=== PATIENT | male | born 1975 | race Caucasian/White ===

== ENCOUNTER 2020-02-17 11:59 | Observation (INO) ==
[2020-02-17 13:08] LABS: Basophils # (auto) 0.01 K/uL (0-0.2); Basophils % (auto) 0.1 %; Eosinophils # (auto) 0.12 K/uL (0-0.5); Eosinophils % (auto) 1.5 %; Hematocrit (blood only) 43.4 % (42-52); Hemoglobin 14.8 g/dL (14.0-18.0); Immature Granulocytes # (auto) 0.04 K/uL (0.00-0.02); Immature Granulocytes % (auto) 0.5 %; Lymphocytes # (auto) 1.11 K/uL (1.2-3.4); Lymphocytes % (auto) 14.1 %; Mean Corpuscular Hemoglobin 31.2 pg (25-34); Mean Corpuscular Hgb Conc 34.1 g/dL (32-36); Mean Corpuscular Volume 91.4 fL (80-100); Mean Platelet Volume 9.6 fL (7.4-10.4); Monocytes # (auto) 0.71 K/uL (0.11-0.59); Neutrophils # (auto) 5.86 K/uL (1.4-6.5); Neutrophils % (auto) 74.8 %; Platelet Count 297 K/uL (130-400); RDW Standard Deviation 43.3 fL (36.4-46.3); Red Blood Count 4.75 M/uL (4.7-6.1); White Blood Count 7.85 K/uL (4.8-10.8)
--- NOTE | 2020-02-17 13:11 | Emergency Department Note ---
Impression & Plan Foreign body ingestion ED Provider Note NAME: JENNIFFER [id number] ISABEL AGE: 44 SEX: M ARRIVES VIA: Walk-In INFORMANT: [Patient] ED PROVIDER(S): Xavier Fontanez MD CHIEF COMPLAINT: Ingested foreign body PLAN: Disposition: Taken to the OR Condition: [Good] MEDICAL DECISION MAKING: Patient presented emergency department after ingesting 3 AAA batteries. He has done this several times before. Record review indicates he was treated conservatively as the batteries were past the pylorus on his last visit. He did pass the batteries with a bowel prep. This ingestion occurred about 2 hours ago. IV was established. Blood work was obtained. KUB imaging confirmed. Consultation was made with gastroenterology. Dr. Watt recommended conservative management as these should pass on their own. He recommended a GoLYTELY bowel prep and admission to the hospital service. A consultation was p laced with the [facility]. The patient was evaluated in the ER and admitted for further management. Triage Nursing notes reviewed and agree them. [Additional history obtained from] care home guards [Prior medical records reviewed] patient was discharged 7 days ago for similar ingestion. Vital Signs: reviewed and remarkable for [no significant abnormalities] Differential diagnosis: Foreign body ingestion, esophageal tear, esophageal ulcer, gastric perforation, obstruction, mesenteric ischemia, mood, pancreatitis, biliary pathology, malingering, as well as other pathologies. ER treatment provided: No medication given. Diagnostics interpreted by me: Laboratory studies: [See below] an unremarkable CBC and chemistry panel. Imaging studies: X-ray imaging, KUB, revealed several radiopaque foreign bodies in the area of the stomach. These look consistent with AAA batteries. Consultation(s): Gastroenterology Internal medicine HPI: The patient is a 44 year old male who presents to the Emergency Room with complaints of foreign body ingestion. This started 2 hours and is at least the third time this has occurred. The patient also notes the following associated symptoms, epigastric abdominal discomfort. The patient has been given no medication for relieving factors. Current pain is rated as 4/10. Patient states he damaged 3 AAA batteries at the present and ingested these. He was discharged 7 days ago for similar ingestion that required conservative management and bowel prep. Pt denies LOC, headache, fevers, chills, diaphoresis, visual changes, neck pain, chest pain, breathing difficulties, nausea, vomiting, back pain, melena, hematochezia, urinary symptoms, numbness, weakness, lymphadenopathy, rash, or other complaints. ROS: See above HPI for pertinent positives & negatives. A total of [10] systems reviewed and were otherwise negative. PAST MEDICAL HISTORY:[See Below] foreign body ingestion, hepatitis C PAST SURGICAL HISTORY:[See Below] FAMILY HISTORY:[See Below] SOCIAL HISTORY:[See Below] incarcerated HOME MEDICATIONS:[See Below] ALLERGIES:[See Below] VITALS:[See Below] PHYSICAL EXAMINATION: GENERAL: Awake, alert, well-appearing, in no distress HENT: Normocephalic, atraumatic. Oropharynx unremarkable. EYES: Normal conjunctiva. Sclera non-icteric. NECK: Inspection normal. Non-tender. Supple. No nuchal rigidity. FROM. No masses. RESPIRATORY: Clear to auscultation. No wheezes. No rales. Normal respiratory effort. CARDIAC: Normal rate. Normal rhythm. No murmurs. No rubs. Extremities warm and well perfused. Pulses equal. No JVD. GI: Soft, non-distended. Epigastric tenderness to palpation. No rebound or guarding. No masses. RECTAL: Deferred. MUSCULOSKELETAL: Atraumatic. Chest examination reveals no tenderness. The back is symmetrical on inspection without obvious abnormality. There is no CVA tenderness to palpation. No joint edema. LOWER EXTREMITIES: Calves are equal size bilaterally and non-tender. No edema. No discoloration. NEURO: Normal sensorium. No sensory or motor deficits noted. SKIN: No rash or jaundice noted. ED COURSE: [Critical Care:] [None] Xavier Fontanez MD Past Med/Surg History Medical History Antisocial personality disorder Anxiety Asthma Conduct disorder Hepatitis C Hypercholesterolemia Family History Other Family history non-contributory Social History Preferred Language: Belarusian Communication Ability: Effective Office Messenger Required: No Beliefs That Will Affect Care: None Current Living Situation: Other Current Living Situation Comment: Prisoner, [facility] Other Information That Helps Us Care for You: No Feels Safe at Home: Yes Safety Concerns: Feels Safe At This Time Smoking Status: Former smoker Hx Alcohol Use: No Hx Substance Use: No Allergies Allergies Allergy/AdvReac Type Severity Reaction Status Date / Time No Known Allergies Allergy Unverified 02/17/20 12:28 Home Meds Home Medications Medication Instructions Recorded Confirmed acetaminophen [Tylenol Extra 500 mg PO TID PRN 01/22/20 02/17/20 Strength] diphenhydramine HCl [Benadryl] 50 mg PO BID 01/22/20 02/17/20 doxepin 25 mg PO BID 01/22/20 02/17/20 gemfibrozil 600 mg PO BID 01/22/20 02/17/20 levalbuterol tartrate [Xopenex HFA] 2 inh INHALATION TID PRN 01/22/20 02/17/20 alum-mag hydroxide-simeth [Maalox 30 ml PO TID PRN 02/02/20 02/17/20 Advanced] diclofenac sodium 50 mg PO TID PRN 02/02/20 02/17/20 triamcinolone acetonide 1 applic TOPICAL BID 02/02/20 02/17/20 olanzapine 10 mg PO BID 02/17/20 02/17/20 Previous Rx's Medication Instructions Recorded pantoprazole 40 mg PO DAILY 30 Days #30 tab 01/25/20 polyethylene glycol 3350 [Miralax] 17 g PO BID #0 ea 02/10/20 sennosides-docusate sodium 2 tab PO DAILY #0 tab 02/10/20 [Senokot-S] Results & Data (ED) Vital Signs Vital Signs - 24 hr 02/17/20 12:05 02/17/20 13:32 Temperature 36.9 C Temperature Source Oral Pulse Rate 75 Pulse Rate [Right Finger] 74 Respiratory Rate 18 20 Respiratory Effort / Characteristics Non-Labored Respiratory Depth Normal Blood Pressure 134/61 Blood Pressure [Right Arm] 108/58 L Blood Pressure Mean 85 Blood Pressure Mean [Right Arm] 74 Pulse Oximetry 98 98 Oxygen Delivery Method Room Air Room Air Sepsis Recent Fever Within 48 Hours No Sepsis New/Unexplained Change in Mental Status No Sepsis Action Taken by Nursing No Action Required Laboratory Data Result diagrams: 02/17/20 12:55 02/17/20 12:55 Lab Results 02/17/20 02/17/20 02/17/20 Range/Units 12:55 12:55 12:55 WBC 7.85 (4.8-10.8) K/uL RBC 4.75 (4.7-6.1) M/uL Hgb 14.8 (14.0-18.0) g/dL Hct 43.4 (42-52) % MCV 91.4 (80-100) fL MCH 31.2 (25-34) pg MCHC 34.1 (32-36) g/dL RDW Std Deviation 43.3 (36.4-46.3) fL RDW Coeff of Saad 13.0 (11.5-14.5) % Plt Count 297 (130-400) K/uL MPV 9.6 (7.4-10.4) fL Immature Gran % (Auto) 0.5 % Neut % (Auto) 74.8 % Lymph % (Auto) 14.1 % [place] % (Auto) 9.0 % Eos % (Auto) 1.5 % Baso % (Auto) 0.1 % Immature Gran # (Auto) 0.04 H (0.00-0.02) K/uL Neut # (Auto) 5.86 (1.4-6.5) K/uL Lymph # (Auto) 1.11 L (1.2-3.4) K/uL [place] # (Auto) 0.71 H (0.11-0.59) K/uL Eos # (Auto) 0.12 (0-0.5) K/uL Baso # (Auto) 0.01 (0-0.2) K/uL PT 10.7 (9.0-12.0) Seconds INR 1.0 (0.9-1.1) APTT 26.5 (21.0-31.0) Seconds PTT Ratio 0.9 Sodium 141 (136-145) mmol/L Potassium 4.1 (3.5-5.1) mmol/L Chloride 108 H (98-107) mmol/L Carbon Dioxide 25 (21-32) mmol/L Anion Gap 8.0 (3-11) BUN 10 (7-18) mg/dl Creatinine 0.95 (0.6-1.4) mg/dl Est Cr Clr Drug Dosing 100.2 ml/min Est GFR ( Amer) 112.4 Est GFR (Non-Af Amer) 97.0 BUN/Creatinine Ratio 10.1 (10-20) Glucose 97 (70-99) mg/dl Calcium 9.4 (8.5-10.1) mg/dl Total Bilirubin 0.4 (0.2-1) mg/dl AST 26 (15-37) U/L ALT 57 (12-78) U/L Alkaline Phosphatase 47 (45-117) U/L Total Protein 8.5 H (6.4-8.2) gm/dl Albumin 4.3 (3.4-5.0) gm/dl Globulin 4.2 H (2.5-4.0) gm/dl Albumin/Globulin Ratio 1.0 (0.9-2) Lipase 101 (73-393) U/L Administered Medications Discontinued Medications Sodium Chloride (Nss) 500 mls @ 125 mls/hr IV .Q4H ROSAMARIA Stop: 03/18/20 16:14 Last Admin: 02/17/20 16:49 Dose: Not Given Documented by: [id number] Discharge Plan Visit Data *Final* Discharge Date/Time: 02/17/20 15:30 Chief Complaint: Foreign Body Stated Complaint: SWALLOWED BATTERIES ED Provider: Xavier Fontanez Discharge Problem: Foreign body ingestion Patient Disposition: Admitted As Inpatient Discharge Instructions Interventions: ED Discharge Assessment Last Done: 02/17/20 15:30
[2020-02-17 13:25] LABS: Albumin Level 4.3 gm/dl (3.4-5.0); BUN Creatinine Ratio 10.1 (10-20); Calcium 9.4 mg/dl (8.5-10.1); Creatinine Clr Calc Pharmacy 100.2 ml/min; Est GFR (African American) 112.4; Potassium 4.1 mmol/L (3.5-5.1)
[2020-02-17 13:28] LABS: Bilirubin,Total 0.4 mg/dl (0.2-1); Globulin 4.2 gm/dl (2.5-4.0); Total Protein 8.5 gm/dl (6.4-8.2)
[2020-02-17 13:30] LABS: Partial Thromboplastin Ratio 0.9; Partial Thromboplastin Time 26.5 Seconds (21.0-31.0); Prothrombin Time 10.7 Seconds (9.0-12.0)
--- NOTE | 2020-02-17 13:50 | XRay Report ---
KUB CLINICAL HISTORY: The patient swallowed batteries. FINDINGS: An AP, portable, supine abdominal radiograph is compared to study dated 02/09/2020. There ar e 2 radiodense foreign bodies projecting over the mid stomach consistent with the reported history of ingested batteries. No additional radiodense foreign body is seen. There is no bowel obstruction. Mo derate colonic fecal retention is noted. There are no abnormal abdominal calcifications. The bony str uctures appear intact. IMPRESSION: 2 radiodense foreign bodies project over the stomach and are consistent with the reported history of ingested batteries. Electronically signed by: Chriss Mojica M.D. 02/17/2020 1:49 PM
--- NOTE | 2020-02-17 14:24 | History & Physical Report ---
Date of Service February 17, 2020 Assessment & Plan (1) Foreign body ingestion: Foreign body ingestion KUB:2 radiodense foreign bodies project over the stomach and are consistent with the reported history of ingested batteries. Continue bowel regimen GoLYTELY if patient agrees Repeat KUB in a.m. Psychiatry evaluation for recurrent foreign body ingestion Pain control IV fluids Clear liquid diet N.p.o. after midnight for possible scope if needed Mood disorder H/O schizophrenia ? Malingering Continue doxepin, olanzapine Psychiatric consulted Asthma No signs of exacerbation Albuterol as needed Dyslipidemia Continue gemfibrozil H/O Hep C H/O Prior IV drug use, alcohol and tobacco use DVT Px: SCDs Disposition JESUS Ramirez History of Present Illness Primary Care Provider: JESUS Ramirez Patient is a 44-year-old male with history of mood disorder, asthma, hepatitis C, dyslipidemia, prior IV drug use, alcohol and tobacco use and other medical problems presents from [facility] with epigastric pain after ingestion of 3 AAA batteries 3 hours prior to admission. Patient states having sharp epigastric pain, 7/10 intensity nonradiating since ingestion of foreign body. He had multiple admissions in the past with similar foreign body ingestion. He states undergoing through aggression which prompts him to swallow batteries and believes that his mood disorder is not well controlled. ER physician consulted GI who recommended GoLYTELY but currently patient refuses to consume it. Denies any history of chest pain, SOB, palpitations, dizziness, pedal edema, diaphoresis, cough, hemoptysis, fever, chills, headache, nausea, vomiting, blood in stools, diarrhea, change in appetite, dysuria, hematuria. Allergies Allergy/AdvReac Type Severity Reaction Status Date / Time No Known Allergies Allergy Unverified 02/17/20 12:28 Home Medications Home Medications Medication Instructions Recorded Confirmed Type acetaminophen [Tylenol Extra 500 mg PO TID PRN 01/22/20 02/17/20 History Strength] diphenhydramine HCl [Benadryl] 50 mg PO BID 01/22/20 02/17/20 History doxepin 25 mg PO BID 01/22/20 02/17/20 History gemfibrozil 600 mg PO BID 01/22/20 02/17/20 History levalbuterol tartrate [Xopenex HFA] 2 inh INHALATION TID PRN 01/22/20 02/17/20 History pantoprazole 40 mg PO DAILY 30 Days #30 tab 01/25/20 02/17/20 Rx alum-mag hydroxide-simeth [Maalox 30 ml PO TID PRN 02/02/20 02/17/20 History Advanced] diclofenac sodium 50 mg PO TID PRN 02/02/20 02/17/20 History triamcinolone acetonide 1 applic TOPICAL BID 02/02/20 02/17/20 History polyethylene glycol 3350 [Miralax] 17 g PO BID #0 ea 02/10/20 02/17/20 Rx sennosides-docusate sodium 2 tab PO DAILY #0 tab 02/10/20 02/17/20 Rx [Senokot-S] olanzapine 10 mg PO BID 02/17/20 02/17/20 History Past Med/Surg History Medical History Antisocial personality disorder Anxiety Asthma Conduct disorder Hepatitis C Hypercholesterolemia Family History Other Family history non-contributory Social History Preferred Language: Malay Communication Ability: Effective 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 Beliefs That Will Affect Care: None Current Living Situation: Other Current Living Situation Comment: Prisoner, [facility] Other Information That Helps Us Care for You: No Feels Safe at Home: Yes Safety Concerns: Feels Safe At This Time Smoking Status: Former smoker Hx Alcohol Use: No Hx Substance Use: No Review of Systems Review of Systems: All systems reviewed & are unremarkable except as noted in HPI & below Physical Exam Physical Exam: Physical Exam: Vitals signs as noted above General Appearance:Moderately built and nourished, no apparent distress Head: normocephalic, Atraumatic Eyes: normal inspection, EOMI Neck: supple, Trachea midline Respiratory/Chest: Normal breath sounds, CTA, No accessory muscle use Cardiovascular: S1, S2, No murmur Abdomen/GI:Soft, Epigastric, RLL tender, Bowel sounds present Extremities/Musculoskelatal:normal inspection, no edema Neurologic/Psych:AAOX3, grossly no focal neurological deficits Skin: normal color, warm Results & Data Results & Data ([facility]) Vital Signs (Past 12 Hours) Vital Signs Temp Pulse Pulse Resp BP BP Pulse Ox 02/17/20 13:32 74 20 108/58 L 98 02/17/20 12:05 36.9 C 75 18 134/61 98 Laboratory Results Short CBC 02/17/20 Range/Units 12:55 WBC 7.85 (4.8-10.8) K/uL Hgb 14.8 (14.0-18.0) g/dL Hct 43.4 (42-52) % Plt Count 297 (130-400) K/uL BMP 02/17/20 12:55 Sodium 141 Potassium 4.1 Chloride 108 H Carbon Dioxide 25 BUN 10 Creatinine 0.95 Glucose 97 Calcium 9.4 Liver Function 02/17/20 Range/Units 12:55 Total Bilirubin 0.4 (0.2-1) mg/dl AST 26 (15-37) U/L ALT 57 (12-78) U/L Alkaline Phosphatase 47 (45-117) U/L Albumin 4.3 (3.4-5.0) gm/dl Urine 02/17/20 Range/Units 19:38 Urine Color Yellow Urine Appearance Clear (Clear) Urine pH 8.0 H (4.5-7.5) Ur Specific [place] 1.008 (1.000-1.030) Urine Protein Negative (Negative) Urine Glucose (UA) Negative (Negative) Diagnostic Findings KUB: 2 radiodense foreign bodies project over the stomach and are consistent with the reported history of ingested batteries. Code Status & VTE Plan VTE Prophylaxis Plan VTE Prophylaxis will be ordered: Yes
[2020-02-17] MEDS ORDERED: ONDANSETRON INJ 2 MG/ML 2 ML VIAL IV PRN (15:40)
[2020-02-17] MEDS ORDERED: LEVALBUTEROL TARTRATE 15 GM HFA.AER.AD INH PRN (15:40)
[2020-02-17] MEDS ORDERED: SODIUM CHLORIDE 0.9% 500 ML IV SCH (16:15)
--- NOTE | 2020-02-17 16:17 | Gastrointestinal Consultation ---
Date of Consultation February 17, 2020 Assessment & Plan (1) Foreign body ingestion: three triple A batteries. has done this multiple times before. he does this when he gets angry/frusturated recs: --psychiatry evaluation --serial KUBs daily --golytely 4L now to help the batteries pass --supportive care rest as per primary team Thank you for allowing me to participate in the care of this patient History of Present Illness Attending Physician: Jean-Claude Tejada MD 44 yo male known to GI service who presents today after ingesting batteries. He notes that he has ingested three triple A [facility] today in [facility]. He says he did this because he was angry. He has done this 3 times before in the past. KUB shows ingested batteries. has some abdominal pains currently, no n/v, change in bowel habits. last time the batteries passed with laxative therapy. labs reviewed Allergies Allergy/AdvReac Type Severity Reaction Status Date / Time No Known Allergies Allergy Unverified 02/17/20 12:28 Home Medications Home Medications Medication Instructions Recorded Confirmed Type acetaminophen [Tylenol Extra 500 mg PO TID PRN 01/22/20 02/17/20 History Strength] diphenhydramine HCl [Benadryl] 50 mg PO BID 01/22/20 02/17/20 History doxepin 25 mg PO BID 01/22/20 02/17/20 History gemfibrozil 600 mg PO BID 01/22/20 02/17/20 History levalbuterol tartrate [Xopenex HFA] 2 inh INHALATION TID PRN 01/22/20 02/17/20 History pantoprazole 40 mg PO DAILY 30 Days #30 tab 01/25/20 02/17/20 Rx alum-mag hydroxide-simeth [Maalox 30 ml PO TID PRN 02/02/20 02/17/20 History Advanced] diclofenac sodium 50 mg PO TID PRN 02/02/20 02/17/20 History triamcinolone acetonide 1 applic TOPICAL BID 02/02/20 02/17/20 History polyethylene glycol 3350 [Miralax] 17 g PO BID #0 ea 02/10/20 02/17/20 Rx sennosides-docusate sodium 2 tab PO DAILY #0 tab 02/10/20 02/17/20 Rx [Senokot-S] olanzapine 10 mg PO BID 02/17/20 02/17/20 History Patient History Medical History Antisocial personality disorder Anxiety Asthma Conduct disorder Hepatitis C Hypercholesterolemia Family History Other Family history non-contributory Social History Preferred Language: Irish Communication Ability: Effective Patrol Guard Required: No Beliefs That Will Affect Care: None Current Living Situation: Other Current Living Situation Comment: Prisoner, [facility] Other Information That Helps Us Care for You: No Feels Safe at Home: Yes Safety Concerns: Feels Safe At This Time Smoking Status: Former smoker Hx Alcohol Use: No Hx Substance Use: No Review of Systems Constitutional: no fever, no chills and no weight loss Eyes: as per Subjective / HPI Ear, Nose, Mouth, Throat: as per Subjective / HPI Respiratory: no dyspnea and no dyspnea on exertion Cardiovascular: no chest pain and no palpitations Gastrointestinal: as per Subjective / HPI Musculoskeletal: no joint pain and no swelling Integumentary: no rash and no lesions Neurologic: no numbness and no paresthesia Psychiatric: no depression and no anxiety Endocrine: no fatigue Hematologic / Lymphatic: no easy bleeding and no easy bruising Physical Exam Constitutional: WD/WN, vitals as above Eyes: EOM intact bilaterally Neck: normal visual inspection Respiratory: normal respiratory effort, lungs clear to auscultation Cardiovascular: RRR, no murmur, no edema Gastrointestinal (Abdomen): Inspection/Auscultation: abdomen normal to inspection; abdomen not distended Percussion/Palpation: abdomen soft; abdomen nontender and no hepatosplenomegaly Musculoskeletal: Extremities: no cyanosis Gait: normal gait Skin: no rashes, warm and dry Neurologic: moves all extremities Psychiatric: A+Ox3, euthymic affect Results & Data ([facility]) Vital Signs (Past 12 Hours) Vital Signs Temp Pulse Pulse Resp BP BP Pulse Ox 02/17/20 15:40 36.5 C 74 16 108/60 98 02/17/20 15:30 78 20 121/63 100 02/17/20 15:20 75 20 121/63 100 02/17/20 13:32 74 20 108/58 L 98 02/17/20 12:05 36.9 C 75 18 134/61 98 PG Care Time/CCT Total # of Minutes Spent Total Time Spent with Patient: Total time spent is greater than 50% in coordination of care (as documented) at patient's floor/unit and/or counseling patient: Coding Level of Care Code 35161 Inpt Consult Level 4 Diagnoses Foreign body ingestion T18.9XXA
[2020-02-17] MEDS: POLYETHYLENE (MIRALAX) 17 GM PACK PO SCH (19:08)
[2020-02-17] MEDS: SODIUM CHLORIDE 0.9% 1000ML 1,000 ML IV SCH (19:08)
[2020-02-17] MEDS: LAVAGE SOLUTION 4000ML PO SCH (19:35)
[2020-02-17 19:48] LABS: Appearance Urine Clear (Clear); Bilirubin Urine Negative (Negative); Blood Urine Negative (Negative); Color Urine Yellow; Glucose Urine UA Negative (Negative); Ketones Urine Negative (Negative); Leukocyte Esterase Urine Negative (Negative); Nitrite Urine Negative (Negative); Protein Urine Negative (Negative); Specific Gravity Urine 1.008 (1.000-1.030); Urobilinogen Urine Negative (Negative)
[2020-02-17] MEDS ORDERED: ALBUTEROL 0.083% NEBU SOLN 3 ML VIAL NEB PRN (20:01)
[2020-02-17] MEDS: DOCUSATE SODIUM 100 MG CAP PO SCH (22:12)
[2020-02-17] MEDS: OLANZapine 10 MG TAB PO SCH (22:12)
[2020-02-17] MEDS: DOXEPIN HCL 25 MG CAPSULE PO SCH (22:13)
[2020-02-17] MEDS: gemfibroziL 600 MG TAB PO SCH (22:13)
[2020-02-18] MEDS: ACETAMINOPHEN 325 MG TAB PO PRN ×3 (00:02→16:48)
[2020-02-18] MEDS: SODIUM CHLORIDE 0.9% 1000ML 1,000 ML IV SCH ×3 (02:36→16:45)
[2020-02-18 06:53] LABS: Hematocrit (blood only) 39.5 % (42-52); Hemoglobin 13.5 g/dL (14.0-18.0); Mean Corpuscular Hgb Conc 34.2 g/dL (32-36); Mean Corpuscular Volume 90.8 fL (80-100); Mean Platelet Volume 9.6 fL (7.4-10.4); Platelet Count 231 K/uL (130-400); RDW Coefficient of Variation 12.9 % (11.5-14.5); RDW Standard Deviation 43.3 fL (36.4-46.3); Red Blood Count 4.35 M/uL (4.7-6.1); White Blood Count 5.56 K/uL (4.8-10.8)
[2020-02-18 07:30] LABS: BUN Creatinine Ratio 7.9 (10-20); Calcium 8.9 mg/dl (8.5-10.1); Creatinine Clr Calc Pharmacy 90.9 ml/min; Est GFR (African American) 109.6; Est GFR (Non-African American) 94.6; Potassium 3.8 mmol/L (3.5-5.1)
--- NOTE | 2020-02-18 07:50 | XRay Report ---
KUB HISTORY: ingestion of foreign body COMPARISON: KUB 02/17/2020. FINDINGS: Radiopaque foreign bodies are again noted within the right side of the abdomen likely resid e within the ascending colon. No renal calculi. No ureteral calculi. No pneumoperitoneum or pneumato sis. IMPRESSION: Radiopaque foreign bodies are seen within the right side of the abdomen and likely reside within the ascending colon. ACT 112: Negative or not required by law. Electronically signed by: Rahul Rao M.D. 02/18/2020 7:49 AM
[2020-02-18] MEDS: gemfibroziL 600 MG TAB PO SCH ×3 (09:33→20:33)
[2020-02-18] MEDS: DOCUSATE SODIUM 100 MG CAP PO SCH ×2 (09:33→20:32)
[2020-02-18] MEDS: POLYETHYLENE (MIRALAX) 17 GM PACK PO SCH (09:33)
[2020-02-18] MEDS: PANTOprazole 40 MG TAB PO SCH (09:34)
[2020-02-18] MEDS: DOXEPIN HCL 25 MG CAPSULE PO SCH (09:34)
[2020-02-18] MEDS: OLANZapine 10 MG TAB PO SCH ×2 (09:35→20:33)
[2020-02-18] MEDS: LAVAGE SOLUTION 4000ML PO SCH (10:17)
--- NOTE | 2020-02-18 10:33 | Gastroenterology Progress Note ---
Date of Service February 18, 2020 Assessment & Plan (1) Foreign body ingestion: Pt is a 44 y/o inmate admitted after swallowing 3 AAA batteries. Batteries are now in ascending colon area. No signs of obstruction or peritonitis. This is his 3rd admission in 1 month for foreign body ingestion. - CL diet, advance as tolerated - Golytely to stimulate BM ordered - Series of KUB to ensure batteries are passed; or if DC'd back to residential, make sure stools are sifted through and KUB obtained there to ensure no residual foreign body left - GI to sign off Admission and Anticipated Discharge Date Admission Date: February 17, 2020 Supervising Physician Co-Signing Physician Notes Attending attestation I have seen, examined this patient, and agree with the findings and above by our mid-level provider JUSTINA Webb, with the following additions: - batteries are located in the ascending colon - continue with bowel prep, kub daily Subjective Pt w mild nausea but said hungry and wants to eat. Mild R sided abd discomfort. Review of Systems Review of Systems: All systems reviewed & are unremarkable except as noted in HPI & below Physical Exam Constitutional: WD/WN, vitals as above well groomed, cooperative and comfortable Eyes: PERRL, conjunctivae normal, anicteric sclerae ENMT: external ear and nose normal, oropharynx normal Respiratory: normal respiratory effort, lungs clear to auscultation Cardiovascular: RRR, no murmur, no edema Gastrointestinal (Abdomen): normal bowel sounds, soft, nontender, no hepatosplenomegaly Skin: no rashes, warm and dry no jaundice Psychiatric: A+Ox3, euthymic affect Lymphatic: no lymphedema Results & Data ([facility]) Vital Signs (Past 12 Hours) Vital Signs Temp Pulse Resp BP Pulse Ox 02/18/20 07:58 36.3 C L 62 16 115/68 97 02/17/20 23:45 36.4 C L 74 16 115/70 98
--- NOTE | 2020-02-18 12:18 | Hospitalist Progress Note ---
Date of Service February 18, 2020 Assessment & Plan (1) Foreign body ingestion: Foreign body ingestion Present on admission from longterm after swallowing 3 triple (AAA) batteries Repeat KUB today showed Radiopaque foreign bodies are seen within the right side of the abdomen and likely reside within the ascending colon Agreed to take the Golytely currently GI on board Recommended to continue CL diet, advance as tolerated Series of KUB to ensure batteries are passed If discharge back to the longterm, will recommend to monitor in the infirmary and continue to give stools softener/laxative to help passing the batteries with repeat KUB If pt develops any sign of peritonitis or severe abdominal pain, he can transfer back to the hospital Psychiatry evaluation for recurrent foreign body ingestion- pending Pain control Mood disorder H/O schizophrenia Malingering Continue doxepin, olanzapine Psychiatric consulted Asthma No signs of exacerbation Albuterol as needed Dyslipidemia Continue gemfibrozil H/O Hep C H/O Prior IV drug use, alcohol and tobacco use DVT Px: SCDs CODE STATUS FULL CODE Disposition [facility] Admission and Anticipated Discharge Date Admission Date: February 17, 2020 Subjective Pt was seen and examined Lying in bed with no distress with 2 guards at bedside Pt refused the Golytely last night, but agreed to take it this morning He has been drinking the Golytely He said that he does have a mild abdominal discomfort Pt said that 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, then caused him to swallow the battery Denies any chest pain, palpitation, dizziness and SOB Physical Exam Physical Exam: General- No acute distress Head- atraumatic Eyes- PERRL, EOMI, ENT- oropharynx clear Neck- supple, no JVD Lungs- clear to auscultation Heart- regular rhythm; no murmur Abdomen- normal bowel sounds, soft, +mild abdominal tendenessr Extremities- no calf tenderness Neuro- alert, oriented x 3; PERRL, EOMI; no facial palsy; no dysarthria Skin- warm & dry Results & Data Results & Data ([facility]) Vital Signs (Past 12 Hours) Vital Signs Temp Pulse Resp BP Pulse Ox 02/18/20 07:58 36.3 C L 62 16 115/68 97
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
[2020-02-18] MEDS ORDERED: DOXEPIN HCL 50 MG CAPSULE PO SCH (21:00)
[2020-02-18] MEDS ORDERED: DOXEPIN HCL 50 MG CAPSULE PO ONE (21:48)
[2020-02-19] MEDS: SODIUM CHLORIDE 0.9% 1000ML 1,000 ML IV SCH ×2 (00:39→08:36)
[2020-02-19] MEDS: ACETAMINOPHEN 325 MG TAB PO PRN (00:42)
[2020-02-19] MEDS: DOCUSATE SODIUM 100 MG CAP PO SCH (08:37)
[2020-02-19] MEDS: gemfibroziL 600 MG TAB PO SCH (08:37)
[2020-02-19] MEDS: POLYETHYLENE (MIRALAX) 17 GM PACK PO SCH (08:37)
[2020-02-19] MEDS: OLANZapine 10 MG TAB PO SCH (08:37)
[2020-02-19] MEDS: PANTOprazole 40 MG TAB PO SCH (08:37)
--- NOTE | 2020-02-19 11:00 | XRay Report ---
KUB HISTORY: Follow-up foreign bodies within abdomen. COMPARISON: KUB 02/18/2020. FINDINGS: Radiopaque foreign bodies are now scattered within the mid abdomen, left lower quadrant, an d right mid abdomen. No renal calculi. No ureteral calculi. No pneumoperitoneum or pneumatosis. No e vidence for bowel obstruction. IMPRESSION: Radiopaque foreign bodies now scattered throughout the abdomen and appear to reside within the ascend ing colon, transverse colon, and sigmoid colon. ACT 112: Negative or not required by law. Electronically signed by: Rahul Rao M.D. 02/19/2020 10:58 AM
--- NOTE | 2020-02-19 15:45 | Hospitalist Progress Note ---
Date of Service February 19, 2020 Assessment & Plan (1) Foreign body ingestion: Foreign body ingestion Present on admission from care home after swallowing 3 triple (AAA) batteries Repeat KUB today showed radiopaque foreign bodies now scattered throughout the abdomen and appear to reside within the ascending colon, transverse colon, and sigmoid colon. Had Golytely yesterday GI on board Recommended to continue CL diet, advance as tolerated Continue Miralax and Colace until batteries pass Series of KUB to ensure batteries are passed If discharge back to the care home, will recommend to monitor in the infirmary and continue to give stools softener/laxative to help passing the batteries with repeat KUB If pt develops any sign of peritonitis or severe abdominal pain, he can transfer back to the hospital for eval Psychiatry evaluation for recurrent foreign body ingestion Continue Tylenol for pain control Ok from GI standpoint to discharge back to the care home with the above plan Case discussed with the provider at [facility] Dr. Castro that agreed with the plan and ok for pt to return to [facility] Mood disorder H/O schizophrenia Malingering Psych on board an recommended to increase doxepin to 75mg HS, then advance to 100 mg in a week. Avoid morning dose of Doxepin as it could make him too sleepy. Please watch for dryness of the mouth and constipation over time while on Doxepin Continue olanzapine Follow up with psych at the care home Asthma No signs of exacerbation Albuterol as needed Dyslipidemia Continue gemfibrozil H/O Hep C H/O Prior IV drug use, alcohol and tobacco use DVT Px: SCDs CODE STATUS FULL CODE Disposition Discharge [facility] today Case discussed with Dr. Castro at [facility] Admission and Anticipated Discharge Date Admission Date: February 17, 2020 Subjective Pt was seen and examined Lying in bed with no distress with 2 guards at bedside Pt said that he has been having watery bowel movement from the laxative and stool softener He said that he does not think that he has much in his stomach since he is on clear liquid diet He was wondered if his diet can advance He did not pass the batteries yet I discussed the case with Dr. Castro at [facility] today Denies any chest pain, palpitation, dizziness and SOB Physical Exam Physical Exam: General- No acute distress Head- atraumatic Eyes- PERRL, EOMI, ENT- oropharynx clear Neck- supple, no JVD Lungs- clear to auscultation Heart- regular rhythm; no murmur Abdomen- normal bowel sounds, soft, +mild mid abdominal tenderness with palpation Extremities- no calf tenderness Neuro- alert, oriented x 3; PERRL, EOMI; no facial palsy; no dysarthria Skin- warm & dry Results & Data Results & Data ([facility]) Vital Signs (Past 12 Hours) Vital Signs Temp Pulse Resp BP Pulse Ox 02/19/20 07:22 36.4 C L 59 L 16 114/73 98
--- NOTE | 2020-02-19 17:02 | Discharge Summary ---
Date of Service February 19, 2020 Admission HPI Per Admitting Provider Patient is a 44-year-old male with history of mood disorder, asthma, hepatitis C, dyslipidemia, prior IV drug use, alcohol and tobacco use and other medical problems presents from [facility] with epigastric pain after ingestion of 3 AAA batteries 3 hours prior to admission. Patient states having sharp epigastric pain, 7/10 intensity nonradiating since ingestion of foreign body. He had multiple admissions in the past with similar foreign body ingestion. He states undergoing through aggression which prompts him to swallow batteries and believes that his mood disorder is not well controlled. ER physician consulted GI who recommended GoLYTELY but currently patient refuses to consume it. Denies any history of chest pain, SOB, palpitations, dizziness, pedal edema, diaphoresis, cough, hemoptysis, fever, chills, headache, nausea, vomiting, blood in stools, diarrhea, change in appetite, dysuria, hematuria. Admission Exam Per Admitting Provider Vitals signs as noted above General Appearance:Moderately built and nourished, no apparent distress Head: normocephalic, Atraumatic Eyes: normal inspection, EOMI Neck: supple, Trachea midline Respiratory/Chest: Normal breath sounds, CTA, No accessory muscle use Cardiovascular: S1, S2, No murmur Abdomen/GI:Soft, Epigastric, RLL tender, Bowel sounds present Extremities/Musculoskelatal:normal inspection, no edema Neurologic/Psych:AAOX3, grossly no focal neurological deficits Skin: normal color, warm Principal Diagnosis Foreign body ingestion: Mood disorder H/O schizophrenia Asthma Discharge Exam General- No acute distress Head- atraumatic Eyes- PERRL, EOMI, ENT- oropharynx clear Neck- supple, no JVD Lungs- clear to auscultation Heart- regular rhythm; no murmur Abdomen- normal bowel sounds, soft, +mild mid abdominal tenderness with palpation Extremities- no calf tenderness Neuro- alert, oriented x 3; PERRL, EOMI; no facial palsy; no dysarthria Skin- warm & dry Discharge Data Allergies Allergy/AdvReac Type Severity Reaction Status Date / Time No Known Allergies Allergy Unverified 02/17/20 12:28 Consultations 02/17/20 14:05 ED Decision to Admit Stat 02/17/20 15:40 Consult Case Management - Discharge Planning Routine Consult Gastroenterology Routine 02/17/20 15:43 Consult Psychiatry Routine Ordered Studies KUB CLINICAL HISTORY: The patient swallowed batteries. FINDINGS: An AP, portable, supine abdominal radiograph is compared to study dated 02/09/2020. There are 2 radiodense foreign bodies projecting over the mid stomach consistent with the reported history of ingested batteries. No additional radiodense foreign body is seen. There is no bowel obstruction. Moderate colonic fecal retention is noted. There are no abnormal abdominal calcifications. The bony structures appear intact. IMPRESSION: 2 radiodense foreign bodies project over the stomach and are consistent with the reported history of ingested batteries. Electronically signed by: Chriss Mojica M.D. 02/17/2020 1:49 PM Dictated: 02/17/20 1348 Transcribed: 02/17/20 1348 KUB HISTORY: ingestion of foreign body COMPARISON: KUB 02/17/2020. FINDINGS: Radiopaque foreign bodies are again noted within the right side of the abdomen likely reside within the ascending colon. No renal calculi. No ureteral calculi. No pneumoperitoneum or pneumatosis. IMPRESSION: Radiopaque foreign bodies are seen within the right side of the abdomen and likely reside within the ascending colon. ACT 112: Negative or not required by law. Electronically signed by: Rahul Rao M.D. 02/18/2020 7:49 AM Dictated: 02/18/20 0748 Transcribed: 02/18/20 0748 KUB HISTORY: Follow-up foreign bodies within abdomen. COMPARISON: KUB 02/18/2020. FINDINGS: Radiopaque foreign bodies are now scattered within the mid abdomen, left lower quadrant, and right mid abdomen. No renal calculi. No ureteral calculi. No pneumoperitoneum or pneumatosis. No evidence for bowel obstruction. IMPRESSION: Radiopaque foreign bodies now scattered throughout the abdomen and appear to reside within the ascending colon, transverse colon, and sigmoid colon. ACT 112: Negative or not required by law. Electronically signed by: Rahul Rao M.D. 02/19/2020 10:58 AM Dictated: 02/19/20 1057 Transcribed: 02/19/20 1057 Hospital Course (1) Foreign body ingestion: Foreign body ingestion Present on admission from senior living after swallowing 3 triple (AAA) batteries Repeat KUB today showed radiopaque foreign bodies now scattered throughout the abdomen and appear to reside within the ascending colon, transverse colon, and sigmoid colon. Had Golytely yesterday GI on board Recommended to continue CL diet, advance as tolerated Continue Miralax and Colace until batteries pass Series of KUB to ensure batteries are passed If discharge back to the senior living, will recommend to monitor in the infirmary and continue to give stools softener/laxative to help passing the batteries with repeat KUB If pt develops any sign of peritonitis or severe abdominal pain, he can transfer back to the hospital for eval Psychiatry evaluation for recurrent foreign body ingestion Continue Tylenol for pain control Ok from GI standpoint to discharge back to the senior living with the above plan Case discussed with the provider at [facility] Dr. Castro that agreed with the plan and ok for pt to return to [facility] Mood disorder H/O schizophrenia [facility] Psych on board an recommended to increase doxepin to 75mg HS, then advance to 100 mg in a week. Avoid morning dose of Doxepin as it could make him too sleepy. Please watch for dryness of the mouth and constipation over time while on Doxepin Continue olanzapine Follow up with psych at the senior living Asthma No signs of exacerbation Albuterol as needed Dyslipidemia Continue gemfibrozil H/O Hep C H/O Prior IV drug use, alcohol and tobacco use DVT Px: SCDs CODE STATUS FULL CODE Disposition Discharge [facility] today Case discussed with Dr. Castro at [facility] Total Time Total Time Spent Total Time Spent (In Minutes): 40minutes Total Time Includes: Examination of the Patient, Discharge Planning, Medication Reconciliation, Communication With Other Providers and Other Discharge Plan Discharge Items [facility] Reason For Visit: FOREIGN BODY INGESTION Discharge Diagnosis: Foreign body ingestion: Mood disorder H/O schizophrenia Asthma Activity: Resume your previous activity Non-emergency contact: Primary Care Provider and Psychiatrist Call non-emergency contact if: you have any medication questions Follow-up/Referrals: James LEE [Primary Care Provider] - Diet: Clear liquid Addtl Attending Provider Instructions: Follow up with your primary care provider at [facility] James Follow up with your psychiatry at [facility] Continue monitor in the infirmary and continue to give stools softener/laxative to help passing the batteries with repeat KUB (abdominal xray) If patient develops any sign of peritonitis or severe abdominal pain, he can transfer back to the hospital for evaluation Continue clear liquid diet until passing the 3 triple A batteries (Encourage him to increase his fluid intake while on clear liquid diet and laxative) Please avoid patient to get access with batteries or any object that he can swallow Pending Studies at Discharge: No Stand-Alone Forms: My [facility] Skilled Items Patient informed of condition?: Yes DNR: No Discharge Level of Care: Other Communicable Disease: No Discharge Prognosis: Stable Lines: None Urinary Catheter: No Medications and DC Order Prescriptions: New doxepin 75 mg Capsule 75 mg PO HS Qty: 30 RF: 0 Continued acetaminophen [Tylenol Extra Strength] 500 mg Tablet 500 mg PO TID PRN (Reason: Pain) RF: 0 gemfibrozil 600 mg Tablet 600 mg PO BID RF: 0 diphenhydramine HCl [Benadryl] 25 mg Capsule 50 mg PO BID RF: 0 levalbuterol tartrate [Xopenex HFA] 45 mcg/actuation Hfa Aerosol Inhaler 2 inh INHALATION TID PRN (Reason: Shortness Of Breath) RF: 0 pantoprazole 40 mg Tablet,Delayed Release (Dr/Ec) 40 mg PO DAILY 30 Days Qty: 30 RF: 0 olanzapine 10 mg Tablet 10 mg PO BID RF: 0 triamcinolone acetonide 0.1 % Cream 1 applic TOPICAL BID RF: 0 diclofenac sodium 50 mg Tablet,Delayed Release (Dr/Ec) 50 mg PO TID PRN (Reason: Pain) RF: 0 alum-mag hydroxide-simeth [Maalox Advanced] 200-200-20 mg/5 mL Suspension 30 ml PO TID PRN (Reason: Constipation) RF: 0 polyethylene glycol 3350 [Miralax] 17 gram Powder In Packet 17 g PO BID Qty: 0 RF: 0 sennosides-docusate sodium [Senokot-S] 8.6-50 mg Tablet 2 tab PO DAILY Qty: 0 RF: 0 Discontinued doxepin 10 mg/mL Concentrate 25 mg PO BID RF: 0 Admission Data Admit Date/Time: 02/17/20 14:22 Attending Provider: Laura Gu Admit Provider: Jean-Claude Tejada Primary Care Provider: James LEE Other Providers: Jean-Claude Tejada ; Yovany Watt ; Holly Noonan
[2020-02-19] MEDS ORDERED: DOXEPIN HCL 75 MG CAPSULE PO SCH (21:00)
== END 2020-02-19 19:20 ==
LOC: ED 11:59 → 3N 11:59 → SUATTDRO 14:22 → 3N 15:30